=== PATIENT | female | born 1995 | race Caucasian/White ===

== ENCOUNTER 2019-05-06 07:50 | Emergency (ER) | payer BC ==
--- NOTE | 2019-05-06 07:58 | UC ---
Dental HPI - HPI Summary HPI Summary: 24-year-old female who had a left upper toothache starting yesterday and today she awakened with some left facial swelling. She denies any fever or chills. Does have an appointment with a dentist for Tuesday. - History of Current Complaint Stated Complaint: DENTAL PAIN Time Seen by Provider: 05/06/19 07:54 Hx Obtained From: Patient Hx Last Menstrual Period: 03/07/16 ?: No Onset/Duration: Gradual Onset Severity: Moderate Aggravating Factor(s): Chewing Alleviating Factor(s): Nothing - Allergies/Home Medications Allergies/Adverse Reactions: Allergies Allergy/AdvReac Type Severity Reaction Status Date / Time Penicillins Allergy Hives Verified 05/06/19 08:12 PMH/Surg Hx/FS Hx/Imm Hx Previously Healthy: Yes - Surgical History Surgical History: None - Family History Known Family History: Positive: Unknown - Social History Alcohol Use: None Substance Use Type: None Smoking Status (MU): Never Smoked Tobacco Review of Systems All Other Systems Reviewed And Are Negative: Yes ENT: Positive: Dental Pain - Left upper distal molar with pain. Is Patient Immunocompromised?: No Physical Exam Triage Information Reviewed: Yes Appearance: Well-Appearing, No Pain Distress, Well-Nourished Vital Signs Reviewed: Yes Eyes: Positive: Conjunctiva Clear ENT: Positive: Normal ENT inspection Dental: Positive: Dental Fracture @ - Left upper molar #15 is partially broken, but with no evidence of abscess formation at this point in time however it is tender on palpation. Neck: Positive: Supple, Nontender, No Lymphadenopathy Respiratory: Positive: Lungs clear, Normal breath sounds, No respiratory distress, No accessory muscle use Cardiovascular: Positive: RRR, No Murmur, Pulses Normal, Brisk Capillary Refill Musculoskeletal Exam: Normal Neurological Exam: Normal Psychological Exam: Normal Skin Exam: Normal Dental Complaint Course/Dx - Course Course Of Treatment: Patient is comfortable here. I'm going to start her on clindamycin and she is to keep her appointment on Tuesday for she is going to call the dentist tomorrow morning see if she can get in tomorrow. - Differential Dx/Diagnosis Provider Diagnosis: Toothache Discharge - Sign-Out/Discharge Documenting (check all that apply): Patient Departure All imaging exams completed and their final reports reviewed: No Studies - Discharge Plan Condition: Fair Disposition: HOME Prescriptions: Clindamycin Cap(NF) [Clindamycin Cap 300 mg Cap(NF)] 300 mg PO Q6H 10 Days #40 cap Ibuprofen TAB* [Motrin TAB* 600 MG] 600 mg PO Q8H PRN #15 tab PRN Reason: Pain Patient Education Materials: Toothache (ED) Forms: *Work Release Referrals: Lalo DE LA O,Brittani Hill [Primary Care Provider] - Additional Instructions: You may alternate Tylenol every 4 hours with Motrin 600 mg every 8 hours. Take the Motrin with food. Call your dentist tomorrow to see if you can get in tomorrow otherwise keep your appointment for Tuesday. - Billing Disposition and Condition Condition: FAIR Disposition: Home - Attestation Statements Provider Attestation: Per institutional requirements, I have reviewed the chart, however, I was not consulted specifically or made aware of this patient by the midlevel provider. I did not personally evaluate, interact with , or disposition this patient.
[2019-05-06 08:11] VITALS: BP 115/83
== END 2019-05-06 08:16 | disposition home or self-care (01) ==
LOC: UCCORT 07:50
DX: K08.89 Other specified disorders of teeth and supporting structures (principal); Z88.0 Allergy status to penicillin
CPT/HCPCS: 99212; G0463